=== PATIENT | female | born 1965 | race African-American/Black ===

== ENCOUNTER 2017-05-31 22:15 | Emergency (ER) | payer OTHER ==
[~2017-05-31] VITALS: Ht 170.2 cm; Wt 74.1 kg
[~2017-05-31 22:15] MED LIST: PARO10TA89 PO; SIMV-260 PO; TRIA1CAP6 PO
[2017-05-31] MEDS ORDERED: IBUP-1547 PO (22:40)
[2017-05-31] MEDS ORDERED: FOLI1 PO (22:40)
[2017-06-01 00:01] VITALS: BP 140/80
== END 2017-06-01 00:01 | disposition home or self-care (01) ==
LOC: EMS 23:49
DX: J32.9 Chronic sinusitis, unspecified (principal); E78.00 Pure hypercholesterolemia, unspecified; G89.29 Other chronic pain; F17.210 Nicotine dependence, cigarettes, uncomplicated; I10 Essential (primary) hypertension; M19.90 Unspecified osteoarthritis, unspecified site; Z88.8 Allergy status to other drugs, medicaments and biological substances; Z90.49 Acquired absence of other specified parts of digestive tract
CPT/HCPCS: 99282

== ENCOUNTER 2017-10-30 01:47 | Emergency (ER) | payer OTHER ==
[~2017-10-30] VITALS: Ht 172.7 cm; Wt 81.8 kg
[~2017-10-30 01:47] MED LIST changes: +FOLI1 PO; +IBUP-2071 PO
[2017-10-30] MEDS ORDERED: ESCI20TA36 PO (01:58)
[2017-10-30 04:54] VITALS: BP 133/76
== END 2017-10-30 04:54 | disposition home or self-care (01) ==
LOC: EMS 01:50
DX: R05 Cough (principal); R09.81 Nasal congestion; M79.1 Myalgia; E78.00 Pure hypercholesterolemia, unspecified; I10 Essential (primary) hypertension; F17.210 Nicotine dependence, cigarettes, uncomplicated; Z88.8 Allergy status to other drugs, medicaments and biological substances
CPT/HCPCS: 99283

== ENCOUNTER 2018-03-06 11:21 | Emergency (ER) | payer OTHER ==
[~2018-03-06] VITALS: Ht 170.2 cm; Wt 75.9 kg
[~2018-03-06 11:21] MED LIST changes: +ESCI20TA36 PO; -PARO10TA89 PO
[2018-03-06] MEDS ORDERED: SODIUM CHLORIDE 0.9% 100 ML ONE (15:02)
[2018-03-06] MEDS ORDERED: IOVERSOL 320 MG/ML 100 ML VIAL ONE (15:02)
[2018-03-06 15:43] LABS: BASOPHILS % (AUTO) 0.7 % (0.0-2.0); EOSINOPHILS % (AUTO) 1.4 % (1.0-6.0); HEMATOCRIT 41.3 % (36-46); HEMOGLOBIN 14.8 g/dL (12.0-16.0); LYMPHOCYTES # (AUTO) 3.6 K/uL (1.0-4.8); LYMPHOCYTES % (AUTO) 21.4 % (22.0-44.0); MEAN CORPUSCULAR HEMOGLOBIN 32.7 pg (26.0-34.0); MEAN CORPUSCULAR HGB CONC 35.7 G/dL (31.0-37.0); MEAN CORPUSCULAR VOLUME 91 fL (80-100); NEUTROPHILS # (AUTO) 11.9 K/uL (1.8-7.7); NEUTROPHILS % (AUTO) 70.5 % (40.0-70.0); PLATELET COUNT (AUTO) 238 K/uL (150-450); RED BLOOD CELL COUNT(AUTO) 4.52 MIL/uL (4.00-5.20); RED CELL DISTRIBUTION WIDTH 13.2 % (11.5-14.5)
[2018-03-06 15:53] LABS: ANION GAP 10 mmol/L (8-16); CALCIUM, TOTAL 9.2 mg/dL (8.8-10.5); CARBON DIOXIDE 28 mmol/L (22-29); CHLORIDE 100 mmol/L (98-107); GLOMERULAR FILTR. RATE CALC > 60 mL/min (>60); GLUCOSE,RANDOM 93 mg/dL (70-110); POTASSIUM 3.8 mmol/L (3.5-5.1); SODIUM SERUM 138 mmol/L (136-145); UREA NITROGEN, BLOOD 17 mg/dL (7-18)
[2018-03-06 15:58] LABS: ALANINE AMINOTRANSFERASE 21 U/L (12-78); ALBUMIN 4.2 g/dL (3.4-5.0); ALKALINE PHOSPHATASE 109 U/L (46-116); ASPARTATE AMINOTRANSFERASE 24 U/L (15-37); BILIRUBIN,TOTAL 0.4 mg/dL (0.1-1.0); TOTAL PROTEIN, SERUM 8.4 g/dL (6.4-8.2)
[2018-03-06] MEDS ORDERED: KETOROLAC TROMETHAMINE 30 MG/ML VIAL IVP ONE (18:00)
[2018-03-06] MEDS ORDERED: CefTRIAXone SODIUM 2 GM in DEXTROSE 5%-WATER 20 ML IV ONE (18:00)
[2018-03-06 18:19] VITALS: BP 135/95
== END 2018-03-06 18:25 | disposition home or self-care (01) ==
LOC: EMS 11:22
DX: K05.219 Aggressive periodontitis, localized, unspecified severity (principal); R11.0 Nausea; R51 Headache; E78.00 Pure hypercholesterolemia, unspecified; I10 Essential (primary) hypertension; F17.210 Nicotine dependence, cigarettes, uncomplicated; Z88.8 Allergy status to other drugs, medicaments and biological substances
CPT/HCPCS: 36415; 70487; 80053; 85025; 96374; 96375; 99285; 99406; J0696; J1885; J7050; J7060; Q9967

== ENCOUNTER 2018-11-04 07:48 | Emergency (ER) | payer OTHER ==
[~2018-11-04] VITALS: Ht 170.2 cm; Wt 75.0 kg
[2018-11-04] MEDS ORDERED: TRAZ-219 PO (07:53)
[2018-11-04] MEDS ORDERED: ALBUTEROL SULFATE HFA 90 MCG/PUFF 8 GM INHALER IH ONE (08:45)
[2018-11-04 09:12] VITALS: BP 147/83
== END 2018-11-04 09:13 | disposition home or self-care (01) ==
LOC: EMS 07:49
DX: J20.9 Acute bronchitis, unspecified (principal); I10 Essential (primary) hypertension; E78.00 Pure hypercholesterolemia, unspecified; F17.210 Nicotine dependence, cigarettes, uncomplicated; Z88.8 Allergy status to other drugs, medicaments and biological substances
CPT/HCPCS: 94640; 99406; J3535

== ENCOUNTER 2019-08-06 02:34 | Emergency (ER) | payer OTHER ==
[~2019-08-06] VITALS: Ht 172.7 cm; Wt 78.6 kg
[~2019-08-06 02:34] MED LIST changes: +TRAZ-252 PO
[2019-08-06 03:25] LABS: GLUCOSE,POINT OF CARE 109 MG/DL (70-110)
[2019-08-06 03:29] LABS: BASOPHILS % (AUTO) 0.5 % (0.0-2.0); EOSINOPHILS % (AUTO) 2.2 % (1.0-6.0); HEMATOCRIT 38.1 % (36-46); HEMOGLOBIN 13.2 g/dL (12.0-16.0); LYMPHOCYTES # (AUTO) 4.1 K/uL (1.0-4.8); LYMPHOCYTES % (AUTO) 28.2 % (22.0-44.0); MEAN CORPUSCULAR HEMOGLOBIN 32.1 pg (26.0-34.0); MEAN CORPUSCULAR HGB CONC 34.7 G/dL (31.0-37.0); MEAN CORPUSCULAR VOLUME 93 fL (80-100); MONOCYTES # (AUTO) 0.8 K/uL (0.1-1.0); MONOCYTES % (AUTO) 5.4 % (2.0-9.0); NEUTROPHILS # (AUTO) 9.2 K/uL (1.8-7.7); NEUTROPHILS % (AUTO) 63.7 % (40.0-70.0); PLATELET COUNT (AUTO) 234 K/uL (150-450); RED BLOOD CELL COUNT(AUTO) 4.12 MIL/uL (4.00-5.20)
[2019-08-06] MEDS ORDERED: MECLIZINE HCL 25 MG TABLET PO ONE (03:30)
[2019-08-06 03:36] LABS: ANION GAP 7 mmol/L (8-16); CALCIUM, TOTAL 8.9 mg/dL (8.8-10.5); CARBON DIOXIDE 28 mmol/L (22-29); CHLORIDE 106 mmol/L (98-107); CREATININE 0.93 mg/dL (0.60-1.30); GLOMERULAR FILTR. RATE CALC > 60 mL/min (>60); GLUCOSE,RANDOM 114 mg/dL (70-110); POTASSIUM 3.7 mmol/L (3.5-5.1); SODIUM SERUM 141 mmol/L (136-145); UREA NITROGEN, BLOOD 18 mg/dL (7-18)
[2019-08-06 03:39] LABS: INR 0.9 (0.9-1.1); PROTHROMBIN TIME 9.4 SEC (9.4-11.6)
[2019-08-06 03:41] LABS: ALANINE AMINOTRANSFERASE 19 U/L (12-78); ALBUMIN 3.3 g/dL (3.4-5.0); ALKALINE PHOSPHATASE 65 U/L (46-116); ASPARTATE AMINOTRANSFERASE 17 U/L (15-37); BILIRUBIN,TOTAL 0.3 mg/dL (0.1-1.0); TOTAL PROTEIN, SERUM 6.4 g/dL (6.4-8.2)
[2019-08-06 04:06] LABS: APPEARANCE,URINE CLOUDY (CLEAR); GLUCOSE, URINE (UA) NEGATIVE (NEGATIVE); KETONES,URINE NEGATIVE (NEGATIVE); LEUKOCYTE ESTERASE ,URINE NEGATIVE (NEGATIVE); NITRATE,URINE NEGATIVE (NEGATIVE); OCCULT BLOOD,URINE NEGATIVE (NEGATIVE); PROTEIN,URINE NEGATIVE (NEGATIVE)
[2019-08-06 04:09] LABS: BILIRUBIN,URINE PRELIM. POSITIVE (NEGATIVE)
[2019-08-06 04:15] LABS: BACTERIA,URINE Moderate /HPF (None Seen); RBC,URINE 0-2 /HPF (0-2); SQUAMOUS EPITHELIAL CELL,UR Moderate /LPF (None Seen)
[2019-08-06] MEDS ORDERED: SODIUM CHLORIDE 0.9% 1,000 ML IV ONE (04:15)
[2019-08-06 05:04] VITALS: BP 140/78
== END 2019-08-06 05:28 | disposition home or self-care (01) ==
LOC: EMS 02:35
DX: E86.0 Dehydration (principal); R42 Dizziness and giddiness; E78.00 Pure hypercholesterolemia, unspecified; I10 Essential (primary) hypertension; M19.90 Unspecified osteoarthritis, unspecified site; G89.29 Other chronic pain; F17.210 Nicotine dependence, cigarettes, uncomplicated; Z98.890 Other specified postprocedural states; Z79.899 Other long term (current) drug therapy; Z88.8 Allergy status to other drugs, medicaments and biological substances
CPT/HCPCS: 87086; 93005

== ENCOUNTER 2019-12-28 01:21 | Emergency (ER) | payer OTHER ==
[~2019-12-28] VITALS: Ht 170.2 cm; Wt 71.4 kg
[~2019-12-28 01:21] MED LIST changes: -ESCI20TA36 PO; +ESCI20TA43 PO
[2019-12-28] MEDS ORDERED: SODIUM CHLORIDE 0.9% 1,000 ML IV ONE (03:00)
[2019-12-28 03:28] LABS: BASOPHILS % (AUTO) 0.6 % (0.0-2.0); EOSINOPHILS % (AUTO) 1.8 % (1.0-6.0); HEMATOCRIT 42.9 % (36-46); LYMPHOCYTES # (AUTO) 4.6 K/uL (1.0-4.8); LYMPHOCYTES % (AUTO) 24.2 % (22.0-44.0); MEAN CORPUSCULAR HEMOGLOBIN 32.6 pg (26.0-34.0); MEAN CORPUSCULAR HGB CONC 35.9 G/dL (31.0-37.0); MEAN CORPUSCULAR VOLUME 91 fL (80-100); MONOCYTES # (AUTO) 0.9 K/uL (0.1-1.0); MONOCYTES % (AUTO) 4.8 % (2.0-9.0); NEUTROPHILS # (AUTO) 12.9 K/uL (1.8-7.7); NEUTROPHILS % (AUTO) 68.6 % (40.0-70.0); PLATELET COUNT (AUTO) 261 K/uL (150-450); RED BLOOD CELL COUNT(AUTO) 4.72 MIL/uL (4.00-5.20); RED CELL DISTRIBUTION WIDTH 13.7 % (11.5-14.5)
[2019-12-28 03:33] LABS: HEMOGLOBIN 14.9 g/dL (12.0-16.0)
[2019-12-28 03:36] LABS: ANION GAP 7 mmol/L (8-16); CARBON DIOXIDE 30 mmol/L (22-29); CHLORIDE 100 mmol/L (98-107); CREATININE 0.89 mg/dL (0.60-1.30); GLOMERULAR FILTR. RATE CALC > 60 mL/min (>60); GLUCOSE,RANDOM 97 mg/dL (70-110); POTASSIUM 3.1 mmol/L (3.5-5.1); SODIUM SERUM 137 mmol/L (136-145); UREA NITROGEN, BLOOD 22 mg/dL (7-18)
[2019-12-28 03:42] LABS: ALANINE AMINOTRANSFERASE 24 U/L (12-78); ALBUMIN 3.7 g/dL (3.4-5.0); ALKALINE PHOSPHATASE 86 U/L (46-116); ASPARTATE AMINOTRANSFERASE 20 U/L (15-37); BILIRUBIN,TOTAL 0.3 mg/dL (0.1-1.0); TOTAL PROTEIN, SERUM 7.5 g/dL (6.4-8.2)
[2019-12-28 05:03] LABS: APPEARANCE,URINE CLEAR (CLEAR); BILIRUBIN,URINE NEGATIVE (NEGATIVE); GLUCOSE, URINE (UA) NEGATIVE (NEGATIVE); KETONES,URINE NEGATIVE (NEGATIVE); LEUKOCYTE ESTERASE ,URINE NEGATIVE (NEGATIVE); NITRATE,URINE NEGATIVE (NEGATIVE); OCCULT BLOOD,URINE NEGATIVE (NEGATIVE); PH,URINE 5.5 (5.0-8.0); PROTEIN,URINE NEGATIVE (NEGATIVE)
[2019-12-28 05:08] VITALS: BP 132/82
== END 2019-12-28 05:20 | disposition home or self-care (01) ==
LOC: EMS 01:23
DX: R42 Dizziness and giddiness (principal); R51 Headache; I10 Essential (primary) hypertension; E78.00 Pure hypercholesterolemia, unspecified; G89.29 Other chronic pain; F17.210 Nicotine dependence, cigarettes, uncomplicated; Z88.8 Allergy status to other drugs, medicaments and biological substances
CPT/HCPCS: 36415; 71046; 80053; 81003; 84484; 85025; 93005; 99285; J7030

== ENCOUNTER 2021-03-27 11:55 | Emergency (ER) | payer OTHER ==
[~2021-03-27] VITALS: Ht 170.2 cm; Wt 72.0 kg
[~2021-03-27 11:55] MED LIST changes: +ATOR40TA28 PO; +CETI-450 PO; +CHOL100044 PO; +DIPH25 PO; +ESCI20TA37 PO; -ESCI20TA43 PO; +FOLI-130 PO; -FOLI1 PO; +GABA-1181 PO; -SIMV-260 PO; +TRUVT PO
[2021-03-27] MEDS ORDERED: POTA8CAP20 PO (12:02)
[2021-03-27] MEDS ORDERED: ASPI-1198 PO (13:51)
[2021-03-27] MEDS ORDERED: POTA-92 PO (13:51)
[2021-03-27] MEDS ORDERED: PARO-37 PO (13:51)
[2021-03-27] MEDS ORDERED: KETOROLAC TROMETHAMINE 60 MG/2 ML VIAL IM ONE (14:00)
[2021-03-27 14:56] VITALS: BP 112/82
== END 2021-03-27 15:08 | disposition home or self-care (01) ==
LOC: EMS 11:57
DX: M54.31 Sciatica, right side (principal); M16.0 Bilateral primary osteoarthritis of hip; E78.00 Pure hypercholesterolemia, unspecified; I10 Essential (primary) hypertension; Z88.8 Allergy status to other drugs, medicaments and biological substances; Z79.899 Other long term (current) drug therapy
CPT/HCPCS: 73502; 96372; 99283; J1885

== ENCOUNTER 2021-04-04 05:19 | Emergency (ER) | payer OTHER ==
[~2021-04-04] VITALS: Ht 170.2 cm; Wt 70.5 kg
[~2021-04-04 05:19] MED LIST changes: +ASPI-1198 PO; -ESCI20TA37 PO; +PARO-37 PO; +POTA-92 PO
[2021-04-04] MEDS ORDERED: SODIUM CHLORIDE 0.9% 1,000 ML IV ONE ×2 (06:00→06:45)
[2021-04-04] MEDS ORDERED: ONDANSETRON HCL 4 MG/2 ML VIAL IVP ONE ×2 (06:00→08:15)
[2021-04-04 06:10] LABS: BASOPHILS % (AUTO) 0.4 % (0.0-2.0); EOSINOPHILS % (AUTO) 2.6 % (1.0-6.0); HEMATOCRIT 43.2 % (36-46); HEMOGLOBIN 14.9 g/dL (12.0-16.0); LYMPHOCYTES # (AUTO) 3.4 K/uL (1.0-4.8); LYMPHOCYTES % (AUTO) 16.8 % (22.0-44.0); MEAN CORPUSCULAR HEMOGLOBIN 31.1 pg (26.0-34.0); MEAN CORPUSCULAR HGB CONC 34.5 G/dL (31.0-37.0); MEAN CORPUSCULAR VOLUME 90 fL (80-100); MONOCYTES # (AUTO) 1.3 K/uL (0.1-1.0); MONOCYTES % (AUTO) 6.4 % (2.0-9.0); NEUTROPHILS % (AUTO) 73.8 % (40.0-70.0); PLATELET COUNT (AUTO) 303 K/uL (150-450); RED BLOOD CELL COUNT(AUTO) 4.79 MIL/uL (4.00-5.20); RED CELL DISTRIBUTION WIDTH 14.1 % (11.5-14.5)
[2021-04-04 06:17] LABS: ANION GAP 13 mmol/L (8-16); CALCIUM, TOTAL 9.5 mg/dL (8.8-10.5); CARBON DIOXIDE 26 mmol/L (22-29); CHLORIDE 97 mmol/L (98-107); CREATININE 1.18 mg/dL (0.60-1.30); GLOMERULAR FILTR. RATE CALC 58 mL/min (>60); GLUCOSE,RANDOM 125 mg/dL (70-110); POTASSIUM 3.4 mmol/L (3.5-5.1); SODIUM SERUM 136 mmol/L (136-145); UREA NITROGEN, BLOOD 28 mg/dL (7-18)
[2021-04-04 06:23] LABS: ALANINE AMINOTRANSFERASE 22 U/L (12-78); ALBUMIN 3.8 g/dL (3.4-5.0); ALKALINE PHOSPHATASE 118 U/L (46-116); ASPARTATE AMINOTRANSFERASE 19 U/L (15-37); BILIRUBIN,TOTAL 0.7 mg/dL (0.1-1.0); CREATINE KINASE, TOTAL ONLY 71 U/L (26-192); LIPASE 38 U/L (73-393); TOTAL PROTEIN, SERUM 8.1 g/dL (6.4-8.2)
[2021-04-04 06:24] LABS: INR 1.1 (0.9-1.1); PROTHROMBIN TIME 11.2 SEC (9.4-11.6)
[2021-04-04 06:30] LABS: LACTIC ACID 2.7 mmol/L (0.4-2.0)
[2021-04-04] MEDS ORDERED: POTASSIUM CHLORIDE 20 MEQ ER TABLET PO ONE (06:30)
[2021-04-04] MEDS ORDERED: SODIUM CHLORIDE 0.9% 100 ML ONE (06:32)
[2021-04-04] MEDS ORDERED: IOHEXOL 350 MG/ML 100 ML VIAL ONE (06:32)
[2021-04-04 06:39] LABS: B-TYPE NATRIURETIC PEPTIDE 121 pg/mL (0-100)
[2021-04-04 07:48] LABS: APPEARANCE,URINE CLEAR (CLEAR); GLUCOSE, URINE (UA) NEGATIVE (NEGATIVE); KETONES,URINE 15 mg/dL (NEGATIVE); LEUKOCYTE ESTERASE ,URINE NEGATIVE (NEGATIVE); NITRATE,URINE NEGATIVE (NEGATIVE); OCCULT BLOOD,URINE NEGATIVE (NEGATIVE); PH,URINE 5.5 (5.0-8.0); PROTEIN,URINE NEGATIVE (NEGATIVE)
[2021-04-04 07:55] LABS: BILIRUBIN,URINE PRELIM. POSITIVE (NEGATIVE)
[2021-04-04] MEDS ORDERED: MORPHINE SULFATE 4 MG/ML SYRINGE IVP ONE (08:15)
[2021-04-04 10:03] VITALS: BP 128/67
[2021-04-04] MEDS ORDERED: KETOROLAC TROMETHAMINE 30 MG/ML VIAL IVP ONE (10:30)
== END 2021-04-04 10:47 | disposition home or self-care (01) ==
LOC: EMS 05:21
DX: R11.2 Nausea with vomiting, unspecified (principal); R10.9 Unspecified abdominal pain; K59.00 Constipation, unspecified
CPT/HCPCS: 36415; 71045; 73610; 74175; 80053; 81003; 82550; 83605; 83690; 83880; 84484; 85025; 85610; 85730; 93005; 96361; 96374; 96375; 96376; 99285; A9575; J1885; J2270; J2405; J7030; J7050

== ENCOUNTER 2021-05-20 03:39 | Emergency (ER) | payer OTHER ==
[2021-05-20] VITALS (7 sets, daily range): BP systolic 73–92; BP diastolic 40–50
[~2021-05-20] VITALS: Ht 160 cm; Wt 70.3 kg
[~2021-05-20 03:39] MED LIST changes: -ASPI-1198 PO; +ASPI-1450 PO; -PARO-37 PO; +PARO-38 PO
[2021-05-20] MEDS ORDERED: 0.9% SODIUM CHLORIDE 10 ML SYRINGE IVP ONE (03:41)
[2021-05-20] MEDS ORDERED: DEXTROSE 50%-WATER 25 GM/50 ML SYRINGE IVP ONE (03:41)
[2021-05-20] MEDS ORDERED: DOPamine HCL/D5W 400 MG/250 ML IV BAG IV ONE (03:41)
[2021-05-20] MEDS ORDERED: EPINEPHrine 1:10,000 [1 MG/10 ML] SYRINGE IVP ONE (03:41)
[2021-05-20] MEDS ORDERED: ETOMIDATE 2 MG/ML 10 ML VIAL IV ONE (03:41)
[2021-05-20] MEDS ORDERED: SODIUM BICARBONATE [ADULT] 8.4% 50 MEQ/50 ML SYRINGE IVP ONE (03:41)
[2021-05-20] MEDS ORDERED: LIDOCAINE 2% 5 ML JELLY TP ONE (03:41)
[2021-05-20] MEDS ORDERED: 0.9% SODIUM CHLORIDE 10 ML SYRINGE IVP PRN (04:00)
[2021-05-20] MEDS ORDERED: SODIUM CHLORIDE 0.9% 1,000 ML IV ONE (04:00)
[2021-05-20] MEDS ORDERED: PIPERACILLIN/TAZO 3.375 GM/D5W 50 ML IV ONE (04:15)
[2021-05-20] MEDS ORDERED: NOREPINEPHRINE 4 MG/D5%-WATER 250 ML IV ONE ×2 (04:15→13:48)
[2021-05-20 04:21] LABS: ABG A-A DIFF O2 618.8 mmHg (10-20.0); ABG BASE EXCESS -9.2 mmol/L (-2.0-3.0); ABG CARBOXYHEMOGLOBIN 1.5 % (0.0-1.5); ABG HCO3 17.4 mmol/L (22.0-26.0); ABG METHEMOGLOBIN 0.2 % (0.0-1.5); ABG OXYGEN CONTENT 6.4 mL/dL (15.0-23.0); ABG OXYGEN SATURATION 87.1 % (95.0-98.0); ABG OXYHEMOGLOBIN 85.6 % (94.0-100.0); ABG PCO2 31 mmHg (35-45); ABG PH 7.344 (7.35-7.450); PO2, ARTERIAL BG 63.1 mmHg (84.0-92.0); SOURCE, BLOOD GAS ARTERIAL; TEMPERATURE, FAHRENHEIT, BG 98.6 FAHREN (96.0-98.6)
[2021-05-20 04:25] LABS: ABG TOTAL HEMOGLOBIN 5.2 G/dL (12.0-18.0); O2 DEVICE,BLOOD GAS VENTILATOR (ROOM AIR); PEEP,BG 5 cm H2O; SITE, BLOOD GAS LFT FEMORAL; VT, ABG 420 ml
[2021-05-20] MEDS ORDERED: VANCOMYCIN HCL 1.25 GM in DEXTROSE 5%-WATER 250 ML IV ONE (04:30)
[2021-05-20] MEDS ORDERED: PHENYLEPHRINE HCL IN 0.9% NACL 400 MCG/10 ML SYRINGE IVP ONE (04:43)
[2021-05-20] MEDS ORDERED: NOREPINEPHRINE 4 MG/D5%-WATER 250 ML IV PRN (04:45)
[2021-05-20] MEDS ORDERED: PHENYLEPHRINE 200 MG/D5%-WATER 250 ML IV PRN (04:45)
[2021-05-20 04:59] LABS: APPEARANCE,URINE CLOUDY (CLEAR); GLUCOSE, URINE (UA) NEGATIVE (NEGATIVE); KETONES,URINE TRACE mg/dL (NEGATIVE); LEUKOCYTE ESTERASE ,URINE SMALL (NEGATIVE); NITRATE,URINE POSITIVE (NEGATIVE); OCCULT BLOOD,URINE SMALL (NEGATIVE); PROTEIN,URINE SEE CONFIRM (NEGATIVE)
[2021-05-20] MEDS ORDERED: SODIUM CHLORIDE 0.9% 2,100 ML IV ONE (05:00)
[2021-05-20] MEDS ORDERED: ONDANSETRON HCL 4 MG/2 ML VIAL IVP PRN (05:00)
[2021-05-20] MEDS ORDERED: ACETAMINOPHEN 325 MG TABLET PO PRN (05:00)
[2021-05-20 05:09] LABS: BILIRUBIN,URINE PRELIM. POSITIVE (NEGATIVE)
[2021-05-20 05:19] LABS: ABG A-A DIFF O2 602.6 mmHg (10-20.0); ABG BASE EXCESS -11.6 mmol/L (-2.0-3.0); ABG HCO3 15.7 mmol/L (22.0-26.0); ABG METHEMOGLOBIN 0.2 % (0.0-1.5); ABG OXYGEN CONTENT 8.4 mL/dL (15.0-23.0); ABG OXYGEN SATURATION 90.6 % (95.0-98.0); ABG OXYHEMOGLOBIN 89.5 % (94.0-100.0); ABG PCO2 32 mmHg (35-45); ABG PH 7.289 (7.35-7.450); PO2, ARTERIAL BG 77.7 mmHg (84.0-92.0); SOURCE, BLOOD GAS ARTERIAL; TEMPERATURE, FAHRENHEIT, BG 99.2 FAHREN (96.0-98.6)
[2021-05-20 05:20] LABS: ABG TOTAL HEMOGLOBIN 6.6 G/dL (12.0-18.0); O2 DEVICE,BLOOD GAS VENTILATOR (ROOM AIR); SITE, BLOOD GAS RT BRACHIAL; VT, ABG 420 ml
[2021-05-20 05:29] LABS: BACTERIA,URINE Few /HPF (None Seen); SQUAMOUS EPITHELIAL CELL,UR Few /LPF (None Seen)
[2021-05-20 05:30] LABS: SULFOSALICYLIC ACID,URINE 2+ (Negative)
[2021-05-20 05:54] LABS: MEAN CORPUSCULAR HEMOGLOBIN 31.3 pg (26.0-34.0); MEAN CORPUSCULAR HGB CONC 33.6 G/dL (31.0-37.0); MEAN CORPUSCULAR VOLUME 93 fL (80-100); PLATELET COUNT (AUTO) 82 K/uL (150-450); RED BLOOD CELL COUNT(AUTO) 2.14 MIL/uL (4.00-5.20)
[2021-05-20 05:59] LABS: CREATININE 1.18 mg/dL (0.60-1.30); POTASSIUM 4.1 mmol/L (3.5-5.1)
[2021-05-20] MEDS ORDERED: VASOPRESSIN 40 UNITS in DEXTROSE 5%-WATER 98 ML IV PRN (06:00)
[2021-05-20] MEDS ORDERED: DOPamine 400MG/D5W[STANDARD] 250 ML IV PRN (06:00)
[2021-05-20 06:03] LABS: HEMOGLOBIN 6.7 g/dL (12.0-16.0); INR 1.7 (0.9-1.1); PROTHROMBIN TIME 17.3 SEC (9.4-11.6)
[2021-05-20 06:12] LABS: LACTIC ACID 6.6 mmol/L (0.4-2.0)
[2021-05-20 06:39] LABS: BAND NEUTROPHILS % (MANUAL) 28 % (0-5); LYMPHOCYTES % (MANUAL) 24 % (22-44); METAMYELOCYTES % 7 % (0-0); MONOCYTES % (MANUAL) 5 % (2-9); MYELOCYTES % 3 % (0-0); SEGMENTED NEUTROPHILS % 33 % (40-70)
[2021-05-20 06:44] LABS: COVID AG,FIA SOURCE NASOPHARYNGEAL
[2021-05-20 06:47] LABS: BILIRUBIN,TOTAL 1.8 mg/dL (0.1-1.0); TOTAL PROTEIN, SERUM 3.6 g/dL (6.4-8.2)
[2021-05-20] MEDS ORDERED: EPINEPHrine 2 MG in DEXTROSE 5%-WATER 248 ML IV PRN (08:30)
[2021-05-20] MEDS ORDERED: FentaNYL CIT 1000MCG/0.9% NACL 100 ML IV PRN (08:30)
[2021-05-20] MEDS ORDERED: MORPHINE SULFATE 2 MG/ML SYRINGE IVP PRN (08:30)
== END 2021-05-20 17:11 | disposition home or self-care (01) ==
LOC: EMS 03:40
DX: I46.9 Cardiac arrest, cause unspecified (principal); A41.9 Sepsis, unspecified organism; J18.9 Pneumonia, unspecified organism; D64.9 Anemia, unspecified; C78.01 Secondary malignant neoplasm of right lung; C79.31 Secondary malignant neoplasm of brain; I10 Essential (primary) hypertension; E78.00 Pure hypercholesterolemia, unspecified; G89.29 Other chronic pain; F17.210 Nicotine dependence, cigarettes, uncomplicated; Z20.822 Contact with and (suspected) exposure to COVID-19
CPT/HCPCS: 31500; 36415; 36430; 36556; 36600; 71045; 80053; 81001; 82550; 82805; 83605; 83880; 84484; 85025; 85610; 85730; 86850; 86900; 86901; 86920; 87040; 87077; 87186; 87205; 87426; 93005; 96361; 96365; 96366; 96368; 96375; 99291; A9575; J0171 ×2; J1265; J2270; J2370; J2543; J3370; J3490 ×4; J7060 ×2; P9016; X7700; 81002; 94002